=== PATIENT | female | born 1950 | race Caucasian/White ===

== ENCOUNTER 2021-02-21 11:27 | Observation (INO) ==
[2021-02-21] MEDS ORDERED: NS 0.9% 1000 ml BAG 1,000 ML IV ONE ×2 (12:08→14:50)
[2021-02-21] MEDS ORDERED: Ondansetron 4 mg VIAL 2 MG/ML 2 ml VIAL IV ONE ×2 (12:09→16:30)
[2021-02-21 12:54] LABS: ABS Lymphocytes 0.7 10^3/ul (1.0-4.8); ABS Monocytes 0.3 10^3/ul (0-0.8); ABS Neutrophils 5.7 10^3/ul (1.5-7.7); Eosinophil % 0.2 %; Hematocrit 40 % (35-47); Hemoglobin 13.5 g/dL (12.0-16.0); Lymphocyte % 10.8 %; Mean Corpuscular HGB Conc 34 g/dL (31-36); Mean Corpuscular Hemoglobin 30 pg (27-31); Mean Corpuscular Volume 88 fL (80-97); Mean Platelet Volume 7.4 fL (7.4-10.4); Nucleated Red Blood Cells % 0.1; Platelet Count 239 10^3/uL (150-450); Red Blood Count 4.57 10^6 /uL (3.70-4.87); Red Cell Distribution Width 13 % (10-15); White Blood Count 6.7 10^3/uL (3.5-10.8)
[2021-02-21 13:10] LABS: Albumin 3.8 g/dL (3.2-5.2); Albumin/Globulin Ratio 1.2 (1-3); Calcium 9.3 mg/dL (8.6-10.3); Globulin 3.1 g/dL (2-4); Magnesium 1.9 mg/dL (1.9-2.7); Potassium 4.1 mmol/L (3.5-5.0); Total Bilirubin 0.6 mg/dL (0.2-1.0); Total Protein 6.9 g/dL (6.4-8.9)
[2021-02-21] MEDS ORDERED: Iohexol 350 (CONTRAST) 500 ML MDV IV ONE (13:19)
[2021-02-21] MEDS ORDERED: Magnesium Sulfate 2 gm BAG 2 GM/50 ML BAG IVPB ONE (14:49)
[2021-02-21] MEDS ORDERED: Diazepam INJ CARPUJECT 5 MG/ML IV ONE (14:50)
[2021-02-21 17:03] LABS: Troponin I 0.01 ng/mL (<0.03)
[2021-02-21] MEDS ORDERED: Metoclopramide 5 MG/ML VIAL (10 mg) IV SLOW PU PRN (17:20)
[2021-02-21] MEDS ORDERED: NS 0.9% 1000 ml BAG 1,000 ML IV SCH (17:30)
[2021-02-21 17:36] LABS: TSH Ultra Thyroid Stim Horm 1.14 mcIU/mL (0.34-5.60)
[2021-02-21 18:08] LABS: Rapid COVID-19 Molecular Undetected (Undetected)
[2021-02-21] MEDS ORDERED: Metoclopramide 5 MG/ML VIAL (10 mg) ONE (18:43)
[2021-02-21] MEDS: Enoxaparin 40 MG/0.4 ML SYR SUBCUT SCH (23:26)
[2021-02-22] MEDS ORDERED: Fluticasone NASAL SPRAY 50MCG 16 gm SPRAY BTL BOTH NARES SCH (09:00)
[2021-02-22] MEDS ORDERED: Cholecalciferol (VIT D3) 1,000 unit TAB PO SCH (09:00)
[2021-02-22] MEDS ORDERED: Lorazepam PYXIS KEY PRN (12:47)
[2021-02-22] MEDS ORDERED: LORazepam 2 mg VIAL 1 ml IV PUSH ONE (12:48)
[2021-02-22] MEDS ORDERED: Aspirin EC 81 mg TAB.EC (enteric coated) PO SCH (13:00)
[2021-02-22] MEDS: Enoxaparin 40 MG/0.4 ML SYR SUBCUT SCH (18:46)
[2021-02-22 20:21] VITALS: BP 151/61
== END 2021-02-22 20:10 | disposition home or self-care (01) ==
LOC: ED 11:27 → MEDTELE 11:27
PROVIDERS: ADMIT Internal Medicine; ATTEND Internal Medicine